=== PATIENT | female | born 1955 | race Caucasian/White ===

== ENCOUNTER 2025-05-13 20:39 | Emergency (ER) | payer OTHER ==
[2025-05-13 21:08] LABS: #Basophils 0.2 thou/uL (0.0-0.2); #Eosinophils 0.2 thou/uL (0.0-0.7); #Lymphocytes 4.0 thou/uL (1.20-3.40); #Monocytes 0.7 thou/uL (0.11-0.59); #Neutrophils 3.9 thou/uL (1.40-6.50); %Basophils 2.1 % (0.0-1.0); %Eosinophils 1.8 % (0.0-10.0); %Lymphocytes 45.1 % (21.0-51.0); %Monocytes 7.6 % (0.0-10.0); %Neutrophils 43.4 % (42.0-75.0); Hematocrit 45.9 % (36.0-47.0); Hemoglobin 14.6 g/dL (12.0-16.0); Mean Corpuscular Hemoglobin 28.1 pg (27.0-31.0); Mean Corpuscular Volume 88.2 fl (78.0-98.0); Platelet Count 297 10x3/uL (130-400); Red Blood Cell (RBC) Count 5.21 mill/uL (4.20-5.40); White Blood Cell (WBC) Count 9.0 10x3/uL (4.8-10.8)
[2025-05-13 21:27] LABS: Troponin I 0.023 ng/mL (< 0.028)
[2025-05-13 21:30] LABS: ALT (SGPT) 13 U/L (Less than 34); AST (SGOT) 19 U/L (11-34); Albumin 4.4 g/dL (3.1-4.5); Alkaline Phosphatase 46 U/L (40-110); Anion Gap 17 mmol/L (10-20); BUN (Urea Nitrogen) 15 mg/dL (9.8-20.1); Bilirubin, Total 0.5 mg/dL (0.3-1.2); Calc. Creatinine Clearance 0 mL/min (70-130); Calcium 9.4 mg/dL (7.8-10.44); Carbon Dioxide 23 mmol/L (23-31); Chloride 102 mmol/L (98-107); Globulin 2.3 g/dL (2.4-3.5); Glucose 97 mg/dL (83-110); Lipase 36 U/L (8-78); Potassium 4.1 mmol/L (3.5-5.1); Sodium 138 mmol/L (136-145)
[2025-05-13] MEDS ORDERED: Ondansetron PF 4 MG/2 ML Vial ONE (21:40)
[2025-05-13 22:20] LABS: Specific Gravity, Urine 1.010 (1.005-1.030)
[2025-05-13 22:21] LABS: Bacteria/HPF None Seen HPF (None Seen); CAUTI Indications for Culture Alt mental st,lethar; Glucose, Urine (Dipstick) Negative (Negative); Leukocyte Negative (Negative); Protein, Urine (Dipstick) Negative (Neg-Trace); RBC/HPF None Seen HPF (0-3); Urine Culture Reflex No No; WBC/HPF None Seen HPF (0-3)
== END 2025-05-13 23:24 ==
LOC: MADERS 20:39
DX: T17.918A Gastric contents in respiratory tract, part unspecified causing other injury, initial encounter (principal); R10.32 Left lower quadrant pain; R11.2 Nausea with vomiting, unspecified; W44.8XXA Other foreign body entering into or through a natural orifice, initial encounter
CPT/HCPCS: 71045; 74176; 80053; 81001; 83690; 83880; 84484; 85025; 87428; 93005; 96361; 96374; J2405; J7030